=== PATIENT | female | born 2000 | race Two or more races ===

== ENCOUNTER 2022-03-05 10:24 | Outpatient (REF) | payer OTHER, SELFPAY ==
[2022-03-05 13:16] LABS: Appearance Urine HAZY; Color Urine YELLOW; Glucose Urine UA NEG (NEG); Leukocyte Esterase Urine TRACE (NEG); Nitrite Urine POS (NEG); PH 7.5 (5.0-8.0); UACC Culture Trigger YES; Urine Blood 1+ (NEG); Urine Ketones NEG (NEG); Urine Protein 1+ MG/DL (NEG-TRACE)
[2022-03-05 13:34] LABS: Bacteria Urine 4+ /LPF; Squamous Epithelial Cell Urine 4+ /LPF
[2022-03-05 14:28] LABS: MANUAL DIFF FLAG NO
[2022-03-05 14:31] LABS: Basophils Percent Auto 0.4 % (0-2); Eosinophils Percent Auto 0.2 % (0-4); Hematocrit 33.1 % (37.0-47.0); Hemoglobin 11.3 g/dl (12.0-16.0); Imm Gran Abs Auto 0.02 X10*3/uL (0.00-0.03); Imm Gran Pct Auto 0.2 % (0.0-0.4); Lymphocytes Absolute Auto 1.9 X10*3/uL (1.2-4.9); Lymphocytes Percent Auto 22.7 % (20-40); Mean Corpuscular HGB Conc 34.1 g/dl (31.0-35.0); Mean Corpuscular Hemoglobin 33.7 pg (27.0-33.0); Mean Corpuscular Volume 98.8 fL (80.0-98.0); Mean Platelet Volume 9.7 fL (9.4-12.3); Monocytes Absolute Auto 0.3 X10*3/uL (0.1-1.2); Monocytes Percent Auto 3.5 % (2-11); Platelet Count 420 X10*3/uL (160-400); Red Blood Count 3.35 X10*6/uL (4.20-5.50); Red Cell Distribution Width 12.4 % (11.0-16.0); White Blood Count 8.3 X10*3/uL (4.8-10.8)
[2022-03-05 14:44] LABS: Anion Gap 11 (12-20); Blood Urea Nitrogen 8 mg/dL (9-16); Calcium 9.4 mg/dL (8.4-10.2); Carbon Dioxide 24 mmol/L (22-29); Chloride 108 mmol/L (96-108); Cholesterol 130 mg/dL; Estimated Glomerular Filt Rate > 60; Glucose Fasting 97 mg/dL (60-99); HDL Cholesterol 65 mg/dL; LDL Cholesterol Calculated 55 mg/dl; Potassium 4.5 mmol/L (3.3-5.1); Sodium 138 mmol/L (135-145); Triglycerides 52 mg/dL
[2022-03-08 08:21] LABS: HBS Num1 4.89 mIU/mL (0-7.99); HIV AB/AG Nonreactive (Nonreactive); HIV Num 1 0.08 S/CO (0.00-0.99); ~HepC Num1 0.07 S/CO (0.00-0.79); ~Hepatitis B Surface Antibody NONREACTIVE (Nonreactive); ~Hepatitis C Antibody Nonreactive (Nonreactive)
[2022-03-15 08:35] LABS: HSV 1 IgM IFA Negative (Negative); HSV 2 IgM IFA Negative (Negative)
== END 2022-03-05 10:25 | disposition home or self-care (01) ==
LOC: HO.HMGCLDS 10:24
PROVIDERS: Absent Provider Nurse Practitioner Family; PCP Internal Medicine; Visit Provider Physician Assistant Medical
DX: Z13.220 Encounter for screening for lipoid disorders (principal); Z11.4 Encounter for screening for human immunodeficiency virus [HIV]; Z11.3 Encounter for screening for infections with a predominantly sexual mode of transmission; E78.00 Pure hypercholesterolemia, unspecified; I10 Essential (primary) hypertension; Z76.89 Persons encountering health services in other specified circumstances
CPT/HCPCS: 36415; 80048; 80061; 81001; 85025; 86695; 86696; 86706; 86803; 87086; 87088; 87186; 87389

== ENCOUNTER 2023-12-08 08:32 | Outpatient (AMB) | payer BC, SELFPAY ==
[2023-12-08 08:40] VITALS: BP 122/72; BMI 31.3
--- NOTE | 2023-12-08 08:40 | A.OFFPC_ITS ---
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 Required: No Accompanied by: Self / Same As Patient Allergies No Known Allergies Allergy (Verified 12/08/23 08:56) Medication List - Last Reconciled 12/08/23 by Josefa Hurtado MD etonogestrel-ethinyl estradiol 0.12-0.015 mg/24 hr (NuvaRing) 1 vag ring vaginal Q4W triamcinolone acetonide 0.1% 1 appl topical DAILY 2 weeks Tobacco use date assessed: 12/08/23 Dental Screening Dental Screen Date: 12/08/23 Did you have a dental visit in the last 12 months?: Yes Did you have a dental problem in the last 6 months where you did not have access to dental care?: No Was dental information given to patient?: Patient has dentist HPI HPI Comments History of Present Illness Details This is a 23-year-old female that comes for her physical exam. Last Pap smear was September 2023 and was normal. No chest pain or shortness of breath. Has history of macrocytic anemia and this will be repeated. No acute complaints. [facility] Surgical History No pertinent past surgical history Family History Mother No problems noted. 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 1. Little interest or pleasure in doing things: not at all 2. Feeling down, depressed, or hopeless: not at all 3. Trouble falling or staying asleep, or sleeping too much: not at all 4. Feeling tired or having little energy: not at all 5. Poor appetite or overeating: not at all 6. Feeling bad about yourself - or that you are a failure or have let yourself or your family down: not at all 7. Trouble concentrating on things, such as reading the newspaper or watching television: not at all 8. Moving or speaking so slowly that other people could have noticed. Or the opposite - being so fidgety or restless that you have been moving around a lot more than usual: not at all 9. Thoughts that you would be better off or of hurting yourself in some way: not at all Total score: 0 Depression Screening Interpretation: Negative Depression Screening Done: Yes 40266 - PHQ-9 Billing: Yes Source: Developed by Drs. Daron Leyva, Adriane Barillas, Otilio Gannon and colleagues, with an educational raheem from [employer]. Thrive Questionnaire Date Thrive assessed: 12/08/23 I am a: Patient What is your living situation today?: I have a steady place to live Within the past 12 months, did the food you bought not last and you didn't have the money to get more?: Never true Within the past 12 months, did you worry whether your food would run out before you got money to buy more?: Never true Do you have trouble paying for medicines?: No Do you have trouble getting transportation to medical appointments?: No Do you have trouble paying your heating and electricity bill?: No Do you have trouble taking care of your child, family member or friend?: No Do you have trouble with day-to-day activities such as bathing, preparing meals, shopping, managing finances, etc.?: No Are you currently unemployed and looking for a job?: No Are you interested in more education?: No Please select the resources that you would like help with: None Currently or been in a relationship where the following occur: no concerns reported THRIVE Score: 0 AUDIT C Alcohol Use Questionnaire (AUDIT-C) 1. How often do you have a drink containing alcohol?: Monthly or less 2. How many drinks containing alcohol do you have on a typical day when you are drinking?: 1 or 2 3. How often do you have six or more drinks on one occasion?: Never Total Score: 1 Score Reviewed/Action Taken: No MARCO A-7 AMB Questionnaire MARCO A-7 Date MARCO A - 7 assessed: 12/08/23 Feeling nervous, anxious, or on edge: 0 = Not at all Not being able to stop or control worryin = Not at all Worrying too much about different things: 0 = Not at all Trouble relaxin = Not at all Being so restless that it is hard to sit still: 0 = Not at all Becoming easily annoyed or irritable: 0 = Not at all Feeling afraid as if something awful might happen: 0 = Not at all Total MARCO A-7 score (0-4 normal; 5-9 mild; 10-14 moderate; 15-21 severe): 0 Source: Developed by Drs. Daron Leyva, Adriane Barillas, Otilio Gannon and colleagues, with an educational raheem from [employer]. MARCO A-7 Assessment Billing MARCO A-7 Assessment Tool: MARCO A-7 Assessment 66448 Review of Systems Const All systems reviewed & are unremarkable except as noted in HPI and below Eyes Reports no additional complaints, Denies change in vision and Denies other visual disturbances Card Denies chest pain at rest, Denies chest pain with activity, Denies edema, Denies irregular heart rhythm, Denies claudication, Denies dyspnea, Denies dyspnea on exertion, Denies orthopnea, Denies paroxysmal nocturnal dyspnea and Denies slow heart rate Resp Denies cough, Denies dyspnea and Denies dyspnea on exertion GI Denies abdominal pain, Denies change in bowel habits, Denies excessive flatus, Denies nausea and Denies vomiting Denies urinary incontinence, Denies urinary hesitancy and Denies urinary urgency Musc Denies atrophy, Denies deformity and Denies limited range of motion Aller/Immun Denies urticaria Physical exam (Primary Care) Vital Signs: Last Vital Signs BP 122/72 12/08/23 08:40 BMI result Body Mass Index 31.3 Tobacco/Smoking Status: Tobacco use Status Tobacco use date assessed 12/08/23 12/08/23 08:49 Patient Tobacco Use Status Never used Tobacco 12/08/23 08:49 e-Cigarette/Vaping Use Never Used 12/08/23 08:49 PHQ-9: PHQ-9 Score PHQ-9: Total score 0 12/08/23 08:49 Depression Screening Interpretation: Negative Thrive Assessment: Date of Thrive Assessment Date Thrive assessed 12/08/23 12/08/23 08:49 Currently or been in a relationship where the following occur: no concerns reported Const Orientation/consciousness: patient oriented x3 HENMT Head: Yes normal to inspection, Yes normocephalic and Yes atraumatic Ears: external ears normal Eyes General: appearance normal, both eyes and all related structures Eyelids: Yes eyelids normal Conjunctivae: conjunctivae normal Neck Neck: Yes normal visual inspection and Yes supple Resp Effort & Inspection: normal respiratory effort Auscultation: clear to auscultation bilaterally Cardio Jugular venous distension: no JVD Rate: regular rate Rhythm: regular rhythm Heart sounds: S1 normal heart sound present and S2 normal heart sound present GI Inspection: Yes normal to inspection Palpation (GI): Soft to palpation and nontender Auscultation: normal bowel sounds Skin General skin exam: no rashes or lesions noted Neuro General: patient oriented x3 and no focal motor deficits Extrem General: Yes full ROM Psych Appearance: grossly normal Assessment and Plan Assessment & Plan (1) Physical exam: Code(s): Z00.00 - Encounter for general adult medical examination without abnormal findings Plan: Repeat in a year. Orders: Orders Complete Blood Count Auto Diff Today D64.9 - Anemia, unspecified IRON PROFILE Today D64.9 - Anemia, unspecified Vitamin B12 and Folate Today E53.8 - Deficiency of other specified B group vitamins Coding Level of Care Code Est Pt Prev Care 18-39y(53929) Diagnoses Physical exam Z00.00 Additional Codes MARCO A-7 Assessment Billing - MARCO A-7 Assessment Tool: MARCO A-7 Assessment 75983 ([id number]) Time Spent (min) 30
== END 2023-12-08 09:11 | disposition home or self-care (01) ==
PROVIDERS: Visit Provider Internal Medicine
DX: Z00.00 Encounter for general adult medical examination without abnormal findings (principal)
CPT/HCPCS: 99395

== ENCOUNTER 2024-12-12 08:31 | Outpatient (AMB) | payer BC, SELFPAY ==
--- NOTE | 2024-12-12 08:40 | A.OFFPC_ITS ---
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 Required: No Accompanied by: Self / Same As Patient Allergies No Known Allergies Allergy (Verified 12/12/24 08:53) Medication List - Last Reconciled 12/12/24 by Josefa Hurtado MD etonogestrel-ethinyl estradiol 0.12-0.015 mg/24 hr (NuvaRing) 1 vag ring vaginal Q4W Tobacco use date assessed: 12/12/24 Dental Screening Dental Screen Date: 12/12/24 Did you have a dental visit in the last 12 months?: Yes Did you have a dental problem in the last 6 months where you did not have access to dental care?: No Was dental information given to patient?: Patient has dentist HPI HPI Comments History of Present Illness Details The patient is a 24-year-old female presenting for a routine physical examination. Her previous Pap smear from last year was normal with no HPV detected. She could not specify the last time she received a tetanus vaccination but believed it could have been approximately a decade ago. During the visit, the patient opted not to receive a tetanus booster, instead preferring to confirm by checking her medical records. Medically, she is currently using NuvaRing and has no known drug allergies or history of surgery. Her family history includes her father having hypertension and diabetes. Socially, she does not smoke and drinks alcohol occasionally. She reported no significant psychological distress. An outstanding issue is a melanocytic nevus on her leg for which a referral was previously arranged but not utilized. Despite the nevus not exhibiting any alarming changes, she sought reassessment and potentially another referral. The nevus is asymptomatic, apart from occasional itchiness and bleeding upon excessive friction. As routine health maintenance, the patient has been advised to repeat blood work initially found normal in 2021 to monitor ongoing health, including checking hemoglobin, cholesterol, blood sugar, kidney, and liver functions. - Follow-up Pap smear and HPV testing as needed based on previous normal results. - Discussion to verify and potentially u pdate tetanus vaccination status. - Blood tests scheduled to reassess hemo globin, cholesterol, blood sugar, kidney, and liver function. - Monitoring for family history risks, p articularly diabetes and hypertension. - Plans to facilitate a new referral for dermatological assessment regarding the lesion on her leg. [facility] Surgical History No pertinent past surgical history Family History Mother No problems noted. 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 1. Little interest or pleasure in doing things: not at all 2. Feeling down, depressed, or hopeless: not at all 3. Trouble falling or staying asleep, or sleeping too much: not at all 4. Feeling tired or having little energy: not at all 5. Poor appetite or overeating: not at all 6. Feeling bad about yourself - or that you are a failure or have let yourself or your family down: not at all 7. Trouble concentrating on things, such as reading the newspaper or watching te levision: not at all 8. Moving or speaking so slowly that other people could have noticed. Or the opposite - being so fidgety or restless that you have been moving around a lot more than usual: not at all 9. Thoughts that you would be better off or of hurting yourself in some way: not at all Total score: 0 Depression Screening Interpretation: Negative Depression Screening Done: Yes 41778 - PHQ-9 Billing: Yes Source: Developed by Drs. Daron Leyva, Adriane Barillas, Otilio Gannon and colleagues, with an educational raheem from [employer]. Thrive Questionnaire Date Thrive assessed: 12/12/24 I am a: Patient What is your living situation today?: I have a steady place to live Within the past 12 months, did the food you bought not last and you didn't have the money to get more?: Never true Within the past 12 months, did you worry whether your food would run out before you got money to buy more?: Never true Do you have trouble paying for medicines?: No Do you have trouble getting transportation to medical appointments?: No Do you have trouble paying your heating and electricity bill?: No Do you have trouble taking care of your child, family member or friend?: No Do you have trouble with day-to-day activities such as bathing, preparing meals, shopping, managing finances, etc.?: No Are you currently unemployed and looking for a job?: No Are you interested in more education?: No Please select the resources that you would like help with: None Currently or been in a relationship where the following occur: No concerns reported THRIVE Score: 0 AUDIT C Alcohol Use Questionnaire (AUDIT-C) 1. How often do you have a drink containing alcohol?: 2-4 times a month 2. How many drinks containing alcohol do you have on a typical day when you are drinking?: 3 or 4 3. How often do you have six or more drinks on one occasion?: Never Total Score: 3 Score Reviewed/Action Taken: No MARCO A-7 AMB Questionnaire MARCO A-7 Date MARCO A - 7 assessed: 12/12/24 Feeling nervous, anxious, or on edge: 0 = Not at all Not being able to stop or control worryin = Not at all Worrying too much about different things: 0 = Not at all Trouble relaxin = Not at all Being so restless that it is hard to sit still: 0 = Not at all Becoming easily annoyed or irritable: 0 = Not at all Feeling afraid as if something awful might happen: 0 = Not at all Total MARCO A-7 score (0-4 normal; 5-9 mild; 10-14 moderate; 15-21 severe): 0 Source: Developed by Drs. Daron Leyva, Adriane Barillas, Otilio Gannon and colleagues, with an educational raheem from [employer]. MARCO A-7 Assessment Billing MARCO A-7 Assessment Tool: MARCO A-7 Assessment 51894 Review of Systems Const All systems reviewed & are unremarkable except as noted in HPI and below Card Denies chest pain at rest, Denies chest pain with activity, Denies edema, Denies irregular heart rhythm, Denies claudication, Denies dyspnea, Denies dyspnea on exertion, Denies orthopnea, Denies paroxysmal nocturnal dyspnea and Denies slow heart rate Resp Denies cough, Denies dyspnea and Denies dyspnea on exertion GI Denies abdominal pain, Denies change in bowel habits, Denies excessive flatus, Denies nausea and Denies vomiting Neuro Denies behavioral changes and Denies lack of coordination Psych Denies behavioral changes Physical exam (Primary Care) Vital Signs: Last Vital Signs BP 122/70 12/12/24 08:41 BMI result Body Mass Index 29.9 Tobacco/Smoking Status: Tobacco use Status Tobacco use date assessed 12/12/24 12/12/24 08:46 Patient Tobacco Use Status Never used Tobacco 12/12/24 08:46 e-Cigarette/Vaping Use Never Used 12/12/24 08:46 PHQ-9: PHQ-9 Score PHQ-9: Total score 0 12/12/24 08:46 Depression Screening Interpretation: Negative Thrive Assessment: Date of Thrive Assessment Date Thrive assessed 12/12/24 12/12/24 08:46 Currently or been in a relationship where the following occur: No concerns reported [facility] Head: Yes normal to inspection, Yes normocephalic and Yes atraumatic Ears: external ears normal Eyes General: appearance normal, both eyes and all related structures Eyelids: Yes eyelids normal Conjunctivae: conjunctivae normal Neck Neck: Yes normal visual inspection and Yes supple Resp Effort & Inspection: normal respiratory effort Auscultation: clear to auscultation bilaterally Cardio Jugular venous distension: no JVD Rate: regular rate Rhythm: regular rhythm Heart sounds: S1 normal heart sound present and S2 normal heart sound present GI Inspection: Yes normal to inspection Palpation (GI): Soft to palpation and nontender Auscultation: normal bowel sounds Skin General skin exam: no rashes or lesions noted Neuro General: no focal motor deficits Extrem General: Yes full ROM Psych Appearance: grossly normal Coding Level of Care Code Est Pt Level 3 (56047) Est Pt Prev Care 18-39y(16231) Diagnoses Physical exam Z00.00 Skin lesion L98.9 Additional Codes PHQ-9 - 13564 - PHQ-9 Billing: Yes ([id number]) MARCO A-7 Assessment Billing - MARCO A-7 Assessment Tool: MARCO A-7 Assessment 00255 ([id number]) Time Spent (min) 32 Assessment & Plan Assessment & Plan (1) Physical exam: Code(s): Z00.00 - Encounter for general adult medical examination without abnormal findings Category: Medical (2) Skin lesion: Code(s): L98.9 - Disorder of the skin and subcutaneous tissue, unspecified Category: Medical Plan The patient will verify her tetanus vaccination status from past records and schedule immunization if due. She is to attend a dermatology referral for reassessment of the nevus on her leg. Routine blood work has been ordered to reassess health markers, given the extended period since the last analysis. The monitoring of familial health risks such as diabetes and hypertension is advised. Patient was informed and verbally consented to the use of an ambient scribe for clinic note documentation during this visit. I discussed the importance of completing routine check-ups as part of health maintenance, including necessary vaccinations. We agreed that the patient will review her past medical records for her tetanus vaccination status, and she will update it promptly if needed. A dermatology referral was reissued for the examination of the spot on her leg, given her concern and the lapse in utilizing the prior referral. The patient understood the need for updated blood tests to ensure maintained health considering her positive health history from prior tests. Follow-up instructions include returning within three months for blood work results and ensuring regular monitoring for chronic diseases prevalent in her family history. Orders: Orders Comprehensive [place]. Panel Fast Today Z00.00 - Encounter for general adult medical examination without abnormal findings Complete Blood Count Auto Diff Today D64.9 - Anemia, unspecified Lipid Panel Today E78.5 - Hyperlipidemia, unspecified, Z00.00 - Encounter for general adult medical examination without abnormal findings IRON PROFILE Today D64.9 - Anemia, unspecified Referrals Dermatology Referral L98.9 - Disorder of the skin and subcutaneous tissue, unspecified Patient Instructions: - Check your records for the last tetanus vaccination and update as necessary. - Attend the dermatology appointment for evaluation of the nevus on your leg. - Complete the scheduled blood work within the next three months. - Monitor for any changes in your health, particularly regarding the spot on your leg. - Continue to maintain a healthy lifestyle, keeping in mind family medical history. - Return to the clinic or contact us if you develop any new or concerning symptoms.
[2024-12-12 08:41] VITALS: BP 122/70; BMI 29.9
--- OUTSIDE RECORDS SUMMARY | 2024-12-12 08:52 | XMS_ITS | Clinical Summary ---
Author Organization [facility] Address [address] [place] [id number] Phone Care Team Providers Care Analog Ic Design Architect Name Role Phone Unavailable Primary Care Provider Unavailabl e Allergies No known active allergies Medications norgestimate-eth inyl estradiol 0.25-35 MG-MCG per tabletIndication s:Acne vulgaris TAKE 1 TABLET BY MOUTH EVERY DAY 84 tablet 4 11/16/2021 Active Active Problems Problem Noted Date Diagnosed Date Normocytic anemia 07/03/2018 Overview (07/03/2018): Saw Heme 08/2017 again(was seen in 2016) for mild anemia with MCV of 97. Ferritin was 86 & Iron was 177. Pt does not have B12 or Folate defic. Heme gave trial of Fe ( there have been some case of Fe defic with normal Fe studies per Heme note). Pt was to get FU labs in 8 weeks but it looks like this was not done. Heme thinks this may be normal variant & she should have levels checked annually Had normal HgB electrophoresis Sister has macrocytic anemia Assessment & Plan (09/25/2020 12:08 PM EST): Ordered labs last year but Samanta did not get them done Offered today but declined Samanta will consider getting them at a [facility] lab Assessment & Plan (07/05/2019 8:10 AM EDT): Needs repeat labs today - ordered but lab closed & Patient does not think she wants to get bloodwork done - she hates needles Assessment & Plan (07/03/2018 8:52 AM EDT): Never went back for labs after Fe last year Will check CBC today & celiac screen due to mom having celiac picked up due to anemia Acne vulgaris 07/03/2018 Assessment & Plan (09/25/2020 12:07 PM EST): Seen by HUSSEIN Vaughn 07/2020. Started on topical cream & a pill but Samanta did not like - too drying & didn't feel it helped - so she stopped She knows she can go back for re-eval if she wishes We discussed isotretinoin today & she can speak to derm if she is interested ( she was not when seen 07/2020) Assessment & Plan (07/05/2019 8:03 AM EDT): On sprintec - helps Using curology (? Active ingredient) Also gave info on using differin gel if wishes - now OTC Immunizations Immunization Administration Dates Next Due DTaP 5 06/16/2006, 4,2002,09/13,2002 H1N1 10/06/2009,07/16/2009 HPV Vaccine 9 Valent 11/12/2016,05/10/2016 Hep A, ped/adol 10/29/2014,04/23/2014 Hep B, ped/adol 02/06/2003,2002,2002 Hib (PRP-T) 08/22/2003, 3,2002,07/13 IPV 06/16/2006, 3,2002,07/13 Influenza Split 08/11/2011,08/11/2010 Influenza, injectable, quadr ivalent, preservative free 07/05/2019,07/03/2018,06/06/2017,05/10,05/05/2015 Influenza, injectable, trivalent 08/06/2009,01/2006 MMR 06/16/2006,05/17/2003 Meningococcal B Trumenba 09/25/2020,07/05/2019 Meningococcal Conj (Menactra) MCV4P 07/03/2018,0 04/23/2014 Pneumococcal Conjugate 08/22/2003,2002,2002,07/13 Tdap 04/23/2014 Varicella 06/27/2007,05/17/2003 Family History Medical History Relation Name Comments No Known Problems Mother David Relation Name Status Comments Father samuel Alive Mother David Alive Other Family history of Migraines, Family history of Obesity, Family history of Diabetes mellitus Sister Gisella Alive Social History Tobacco Use Types Packs/Day Years Used Date Smoking Tobacco: Never Smokeless Tobacco: Never Comments:Never smoker Alcohol Use Standard Drinks/Week Comments No 0 (1 standard drink = 0.6 oz pur e alcohol) Hunger/Food Answer Date Recorded In the last 12 months, did y ou or your family ever eat less than you felt you should because there wasn't enough money for food? No 07/05/2019 Stable Housing Answer Date Recorded Are you worried that in the next 2 months you may not have stable housing? No 07/05/2019 Transportation Concerns Answer Date Rec orded In the last 12 months, have you or your family ever had to go without healthcare because you didn't have a way to get there? No 07/05/2019 Hazards in Home Answer Date Recorded Think about the place you li ve. Do you have problems with any of the following? Pests (mice or roaches), mold, no/not working smoke detectors, water leaks, no window guards. No 2018 Financing Utilities Answer Date Recorde d In the last 12 months, has t he electric, gas, oil, or water company threatened to shut off your services in your home? No 07/05/2019 Safety at Home Answer Date Recorded Are you or your family worried about feeling saf e in your home? No 07/05/2019 Outside Support Answer Date Recorded Do you feel that you need mo re support from other people or programs to help you care for yourself or your family? No 07/05/2019 Understanding Health Concerns Answer Da te Recorded Do you need help understandi ng your or your child's healthcare needs (diagnosis, medications, plan, etc.)? No 07/05/2019 Financing Health Concerns Answer Date R ecorded In the last 12 months, was t here a time when your child needed to see a doctor or get medications or supplies but could not because of cost? No 07/05/2019 Missing School or Work Answer Date Bebeto rded Did you or your child miss s chool or work because of a health problem that could have been avoided? No 07/05/2019 Comments No Sex and Gender Information Value Date Recorded Sex Assigned at Not on file Legal Sex Female 4:58 PM EDT Gender Identity Not on file Sexual Orientation Not on file Last Filed Vital Signs Vital Sign Reading Time Taken Comments Blood Pressure 119/75 09/25/2020 11:38 AM EST Pulse 84 09/25/2020 11:38 AM EST Temperature 36 ??C (96.8 ??F) 09/25/2020 11: 38 AM EST Respiratory Rate - - Oxygen Saturation - - Inhaled Oxygen Concentration - - Weight 78.4 kg (172 lb 12.8 oz) 021 11:38 AM EST Height 164 cm (5' 4.57 ) 09/25/2020 11: 38 AM EST Body Mass Index 29.14 09/25/2020 11:38 AM EST Plan of Treatment Health Maintenance Due Date Last Done Comments Influenza Vaccines (#1) 2024 06/13/20 23, 06/24/2020, 07/05/2019, Additional history exists DTaP,Tdap,and Td Vaccines (7 - Td or Tdap) 04/23/2024 04/23/2014, 06/16/2006, 11/08/2003, Additional history exists COVID-19 Vaccine (2023-2 5 season) 2024 06/13/2023, 09/24/2021, 01/06/2021, Additional history exists Hepatitis B Vaccines Completed 02/06/2003, 2002, 2002 HIB Vaccines Completed 08/22/2003, 10/14, 2002, Additional history exists Pneumococcal Vaccine Completed 08/22/2003, 2002, 2002, Additional history exists IPV Vaccines Completed 06/16/2006, 01/11, 2002, Additional history exists MMR Vaccines Completed 06/16/2006, 05/17/2003 Varicella Vaccines Completed 06/27/2007, 05/17/2003 Hepatitis A Vaccines Completed 10/29/2014, 04/23/20 14 HPV Vaccines Completed 11/12/2016, 05/10/2016 Meningococcal Vaccine Completed 07/03/2018, 08/12/2 014 Men B Vaccine Completed 09/25/2020, 07/05/2019 Procedures * Due to [place] [employer] law, this organization might not be sharing sensitive test results. Procedure Name Priority Date/Time Associated Diagnosis Comments CHLAMYDIA AND GONORRHEA, AMPLIFIED Routine 07/05/2019 7:38 AM EDT Screening examination for bacterial and spirochetal disease from Last 3 Months or Most Recently Relevant to Health Maintenance Results * Due to [facility] law, this organization might not be sharing sensitive test results. * Chlamydia and Gonorrhoea, Amplified (07/05/2019 7:38 AM EDT) Chlamydia Trachomatis, DNA Probe NEGATIVE (NEG) [facility] Comment: No Chlamydia Trachomatis RNA detected in this patient's sample ? (REFERENCE RANGE/NORMAL VALUE: NOT DETECTED) ? Note: This test uses prototype technician- mediated amplification method to detect rRNA from C. Trachomatis URINE GC AMP PROBE NEGATIVE (NEG) [facility] Comment: No Neisseria Gonorrhoeae RNA detected in this patient's sample ? (REFERENCE RANGE/NORMAL VALUE: NOT DETECTED) ? NOTE: This test uses prototype technician-mediated amplification method to detect rRNA from N.Gonorrhoeae. A negative result does not preclude infection. In the case of a negative urine result, testing of an endocervical(female) or urethral (male) specimen is recommended if there is high clinical suspicion of infection. Due to very high sensitivity of Nucleic Acid Amplification Test, false positive results may occur. Therefore, specimen handling is extremely important. In patients in whom the disease is unlikely, additional sample for testing should be considered after an initial positive result. The performance characteristics of this test have not been evaluated in children. The Aptima Combo2 assay is not intended for the evaluation of suspected sexual abuse or for other medico-legal indications. The ordering provider should assess if the patient had consensual sex without risk of sexual abuse. Consult the [facility] if needed. Contact phone number . Therapeutic failure or success cannot be determined with the Aptima Combo2 assay since nucleic acid may persist following appropriate antimicrobial therapy. The Centers for Disease Control and Prevention (CDC) recommends confirmatory retesting using culture or a different nucleic acid amplification test when positive results occur, if indicated. Testing performed or reported by [facility], a Service of [facility], [facility] [place] [address] Urine 07/05/2019 7:38 AM EDT 07/05/2019 4:52 PM EDT us Anahy Rouse MD LAB MICROBIOLOGY - GENERAL ORDER FRANKI Final Result [facility] from Last 3 Months or Most Recently Relevant to Health Maintenance Insurance [facility] [employer]
--- OUTSIDE RECORDS SUMMARY | 2024-12-12 08:52 | XMS_ITS | Encounter Summary ---
Author Organization [facility] Address [address] [place] [address] Phone Care Team Providers Care Internet Specialist Name Role Phone Anahy Rouse MD Primary Care Provider Encounter Details Date Type Department Care Team (Late st Contact Info) Description 04/24/2012 Documentation [facility] [place] [address] [place] [address] Family Medicine, Physician [address] [place], [place] [id number] Social History Tobacco Use Types Packs/Day Years Used Date Smoking Tobacco: Never Assessed Comments Unknown Sex and Gender Information Value Date Recorded Sex Assigned at Not on file Legal Sex Female 4:58 PM EDT Gender Identity Not on file Sexual Orientation Not on file documented as of this encounter Plan of Treatment Not on file documented as of this encounter Visit Diagnoses Not on filedocumented in this encounter Care Teams Internet Specialist Relationship Specialty Start Date End Date Anahy Rouse MD [address] [place] [id number] PCP - General 04/22/17 07/12/23 documented as of this encounter
--- OUTSIDE RECORDS SUMMARY | 2024-12-12 08:52 | XMS_ITS | Encounter Summary ---
Author Organization [facility] Address [address] [place] [address] Phone Care Team Providers Care Pipe Fitter Helper Name Role Phone Anahy Rouse MD Primary Care Provider [phone] Encounter Details Date Type Department Care Team (Late st Contact Info) Description 04/28/2017 Conversion Encounter [place] [facility] [address] [place] [address] Social History Tobacco Use Types Packs/Day Years Used Date Smoking Tobacco: Never Comments:Never smoker Comments Unknown Sex and Gender Information Value Date Recorded Sex Assigned at Not on file Legal Sex Female 4:58 PM EDT Gender Identity Not on file Sexual Orientation Not on file documented as of this encounter Plan of Treatment Not on file documented as of this encounter Visit Diagnoses Not on filedocumented in this encounter Care Teams Pipe Fitter Helper Relationship Specialty Start Date End Date Anahy Rouse MD [address] [place] [address] PCP - General 04/22/17 07/12/23 documented as of this encounter
== END 2024-12-12 09:04 | disposition home or self-care (01) ==
LOC: HO.HMCH 08:32
PROVIDERS: PCP Internal Medicine; Visit Provider Internal Medicine
DX: Z00.00 Encounter for general adult medical examination without abnormal findings (principal); L98.9 Disorder of the skin and subcutaneous tissue, unspecified

== ENCOUNTER → 2024-12-12 08:31 | Outpatient (BNVA) | payer BC, SELFPAY | PROVIDERS: PCP Internal Medicine; Visit Provider Internal Medicine | DX: Z00.00 Encounter for general adult medical examination without abnormal findings (principal); L98.9 Disorder of the skin and subcutaneous tissue, unspecified | CPT/HCPCS: 96127 ==

== ENCOUNTER 2025-03-01 08:06 | Outpatient (REF) | payer BC, SELFPAY ==
--- OUTSIDE RECORDS SUMMARY | 2025-03-01 08:10 | XMS_ITS | Encounter Summary ---
Author Organization [facility] Address [address] [place] [address] Phone Care Team Providers Care Car Porter Name Role Phone Anahy Rouse MD Primary Care Provider [phone] Encounter Details Date Type Department Care Team (Late st Contact Info) Description 04/24/2012 Documentation [facility] [place] Family Medicine [address] [place] [address] Family Medicine, Physician [address] [place], [place] [id number] Social History Tobacco Use Types Packs/Day Years [...] on filedocumented in this encounter Care Teams Car Porter Relationship Specialty Start Date End Date Anahy Rouse MD [address] [place] [id number] PCP - General 04/22/17 07/12/23 documented as of this encounter
[2025-03-01 08:24] LABS: MANUAL DIFF FLAG NO
[2025-03-01 08:35] LABS: Basophils Absolute Auto 0.1 X10*3/uL (0.0-0.2); Basophils Percent Auto 0.7 % (0-2); Eosinophils Absolute Auto 0.2 X10*3/uL (0.0-0.4); Eosinophils Percent Auto 2.9 % (0-4); Hematocrit 34.1 % (37.0-47.0); Hemoglobin 11.5 g/dl (12.0-16.0); Imm Gran Abs Auto 0.01 X10*3/uL (0.00-0.03); Imm Gran Pct Auto 0.1 % (0.0-0.4); Lymphocytes Absolute Auto 2.8 X10*3/uL (1.2-4.9); Lymphocytes Percent Auto 40.4 % (20-40); Mean Corpuscular HGB Conc 33.7 g/dl (31.0-35.0); Mean Corpuscular Hemoglobin 33.5 pg (27.0-33.0); Mean Corpuscular Volume 99.4 fL (80.0-98.0); Mean Platelet Volume 9.4 fL (9.4-12.3); Monocytes Absolute Auto 0.3 X10*3/uL (0.1-1.2); Monocytes Percent Auto 4.6 % (2-11); Neutrophils Absolute Auto 3.6 x10*3/uL (2.0-8.3); Neutrophils Percent Auto 51.3 % (45-73); Platelet Count 352 X10*3/uL (160-400); Red Blood Count 3.43 X10*6/uL (4.20-5.50); Red Cell Distribution Width 12.5 % (11.0-16.0); White Blood Count 6.9 X10*3/uL (4.8-10.8)
[2025-03-01 09:14] LABS: Alanine Aminotransferase 26 U/L (0-31); Albumin Level 4.4 g/dL (3.5-5.0); Alkaline Phosphatase 62 U/L (39-117); Anion Gap 10 (12-20); Aspartate Amino Transferase 21 U/L (5-31); Bilirubin Total 0.4 mg/dL (0.0-1.0); Blood Urea Nitrogen 16 mg/dL (9-16); Calcium 9.2 mg/dL (8.4-10.2); Carbon Dioxide 24 mmol/L (22-29); Chloride 107 mmol/L (96-108); Cholesterol 119 mg/dL (<200); Estimated Glomerular Filt Rate > 60; Glucose Fasting 93 mg/dL (60-99); HDL Cholesterol 58 mg/dL (>40); Iron 173 mcg/dL (30-160); LDL Cholesterol Calculated 52 mg/dL (<100); Percent Iron Saturation 56 % (15-50); Potassium 4.2 mmol/L (3.3-5.1); Sodium 137 mmol/L (135-145); Total Iron Binding Capacity 311 mcg/dL (228-428); Total Protein 6.9 g/dL (6.5-8.0); Triglycerides 48 mg/dL (<150); Unsaturated Iron Binding 138 ug/dL
[2025-03-01 09:40] LABS: HIV AB/AG Nonreactive (Nonreactive); HIV Num 1 0.06 S/CO (0.00-0.99); Syphilis Screen Nonreactive (Nonreactive)
[2025-03-01 10:15] LABS: CT PCR NOT DETECTED (Not Detect.); NG PCR NOT DETECTED (Not Detect.)
== END 2025-03-01 08:07 | disposition home or self-care (01) ==
LOC: HO.LAB 08:06
PROVIDERS: PCP Internal Medicine; Visit Provider Internal Medicine
DX: Z00.00 Encounter for general adult medical examination without abnormal findings (principal); D64.9 Anemia, unspecified; Z11.3 Encounter for screening for infections with a predominantly sexual mode of transmission; E78.5 Hyperlipidemia, unspecified
CPT/HCPCS: 80053; 80061; 83540; 85025; 86780; 87389; 87491; 87591